=== PATIENT | male | born 1990 | race Caucasian/White ===

== ENCOUNTER 2020-08-25 15:09 | Emergency (ER) | payer OTHER, SELFPAY ==
[2020-08-25 15:10] VITALS: BP 164/99; PULSE 89; RESP 16; TEMP 36.3; O2SAT 100; BMI 38.7
--- NOTE | 2020-08-25 15:12 | NURSING ---
NO OLD EKGS
--- NOTE | 2020-08-25 15:54 | CT_ITS ---
STUDY: CT BRAIN WITHOUT CONTRAST REASON FOR EXAM: Male, 30 years old. PARASTHESIAS RT LEG AND LOWER RT ARM/HAND X 3 DAYS RADIATION DOSAGE (If Supplied By Facility): CTDIvol = ( 44.99 ) mGy, DLP = ( 796.11 ) mGycm TECHNIQUE: Transaxial CT imaging of the brain was performed without administration of intravenous contrast material. Individualized dose optimization techniques were used for this CT. COMPARISON: No relevant priors. FINDINGS: Normal soft tissue structures. Normal calvarium. Normal size ventricles and extra-axial spaces for the patient''s age. Normal white matter tracts of the cerebral hemispheres. Normal basal ganglia and thalami. Normal brainstem. Normal cerebellum. There is no intracranial hemorrhage. There are no findings of an acute ischemic infarction. Mild mucosal thickening of the ethmoid air cells bilaterally.. CT/Brain/Head without Contrast IMPRESSION: Normal unenhanced CT scan of the brain. Mild bilateral ethmoid sinus disease. If clinical concern for acute infarct MRI recommended Electronically Signed: Mehdi Charles MD at 16:53 EST , Service support ,
--- NOTE | 2020-08-25 15:55 | EKG12_ITS ---
Test Reason : NUMBNESS TINGLING Blood Pressure : / mmHG Vent. Rate : 073 BPM Atrial Rate : 073 BPM P-R Int : 152 ms QRS Dur : 090 ms QT Int : 398 ms P-R-T Axes : 039 015 009 degrees QTc Int : 438 ms Normal sinus rhythm Normal ECG Confirmed by BHAKTI PALACIOS, MARQUIS ([id number]), purchasing expeditor ANAMIKA ONEIL ([id number]) on 08/26/2020 1:10:21 PM Referred By: SINDY Confirmed By:MARQUIS YA MD
--- NOTE | 2020-08-25 15:55 | VDLE_ITS ---
Reason For Study: PAIN RIGHT GSV is normal. CFV is compressible, spontaneous, phasic, competent and demonstrates normal augmentation. FV is compressible, spontaneous, phasic, competent and demonstrates normal augmentation. POP V is compressible, spontaneous, phasic, competent and demonstrates normal augmentation. T/P Trunk is compressible. PTV is compressible. RT PerV is compressible. Procedure Exam performed portable in ED. A preliminary report was called and/or faxed to ED. Interpretation Summary Deep veins of the right lower extremity are patent and compressible segmentally. There is no evidence of right lower extremity deep vein thrombosis. Valvular competence appears intact within the proximal deep venous system on the right . The right great saphenous vein appears patent and compressible segmentally. Ordering Physician: López Jara Performed By: Sydni Sampson, ROMI, RVT
[2020-08-25] MEDS: 0.9% Normal Saline 1,000 ML 1000 ML IV (16:06)
[2020-08-25 16:34] LABS: Absolute Lymphocyte Count 1.63 X10^3/uL (0.83-4.51); Absolute Neutrophil Count 8.5 X10^3/uL (2.0-7.7); Basophil# 0.05 X10^3/uL; Basophil% 0.5 % (0-1); Eosinophil# 0.09 X10^3/uL; Eosinophils% 0.8 % (0-5); Hematocrit 50.5 % (40-54); Hemoglobin 16.3 g/dL (13.0-16.5); Lymphocyte # 1.63 X10^3/ul (4.0); Mean Corp Hgb Conc 32.3 g/dL (32-36); Mean Corpuscular Hgb 27.2 pg (27.0-32.0); Mean Corpuscular Volume 84.3 fL (80-94); Mean Platelet Vol. 10.5 fl (6.2-12.0); Monocyte# 0.54 X10^3/uL; NRBC Flagged by Analyzer 0 % (0-5); Neutrophil # 8.49 X10^3/uL (2.7-7.7); Neutrophil % 78.3 % (47-70); Platelet Count 342 K/mm3 (150-450); RBC Distribution Width CV 12.9 % (11.6-14.6); RBC Distribution Width SD 39.8 fl (35.1-43.9); Red Blood Count 5.99 M/mm3 (4.6-6.2); White Blood Count 10.8 K/mm3 (4.4-11.0)
[2020-08-25 16:39] LABS: Anion Gap 5 (5-15); BUN 10 mg/dL (7-18); BUN/Creat Ratio 9.5 RATIO (10-20); Calcium,Total 9.3 mg/dL (8.5-10.1); Chloride 107 mmol/L (98-107); Creatinine, Serum 1.05 mg/dL (0.70-1.30); EST Glomerular Filtration Rate 87 mL/min (>60); Est Glom Filt Rate - Afr Amer 106 mL/min (>60); Estimated Creatinine Clearance 105.25 ml/min; Glucose 103 mg/dL (74-106); Potassium 3.6 mmol/L (3.5-5.1); Sodium Level 141 mmol/L (136-145)
--- NOTE | 2020-08-25 17:15 | ED.VISSUMM ---
- ER Visit Summary Date of Service: 08/25/20 Chief Complaint: Right leg numbness History of Present Illness: The patient is a 30 M with no primary care physician. He reports he has right leg numbness from the knee down circumferentially that began 3 days ago. States that 2 days ago I got . States yesterday the symptoms were improved. However, today they have worsened and he is on his honeymoon and became concerned and came to the emerge department for evaluation. Patient reports that the only other symptom he has had is that his right hand is a little bit nominate that began today. He denies any weakness. No difficulty with his speech. No vertigo. He denies any family history of multiple sclerosis. Physical Examination: Vitals: Stable. Afebrile. General: Well-nourished and well-developed. Head: Normocephalic atraumatic. Neck: Supple, no lymphadenopathy. No JVD. Nontender. Cardiovascular: Regular rate and rhythm. No murmurs. Respiratory: No respiratory distress. Clear to auscultation bilaterally. Abdominal: Soft, nontender, nondistended, normal bowel sounds. No guarding, rebound, or peritoneal signs. Back: Nontender. Extremities: Nontender, no edema. Skin: Normal color, no rash. Neurologic: Alert and oriented ?3. Cranial nerves II through XII are intact. Normal strength. Mild subjective decreased sensation to light touch circumferentially around his right leg from the knee down. He has a 2+ dorsalis pedis pulse. Psych: Normal affect. Test Results: Right lower extremity Doppler is negative. EKG is sinus at 70 with no acute changes. CBC shows segmented for 78 lymphocytes 15. Chem-7 is normal. Clinical Impression(s) from Imaging Studies Brain CT 08/25/20 15:54 IMPRESSION: Normal unenhanced CT scan of the brain. Mild bilateral ethmoid sinus disease. If clinical concern for acute infarct MRI recommended Electronically Signed: Mehdi Charles MD at 16:53 EST , Service support , Emergency Department Course and Treatment: Patient's NIH scale is 1. He is not a TPA candidate due to that in the timeframe. I suspect this is peripheral in nature. Treatment Plan: Patient will be discharged instructions to follow-up with his primary care physician or establish a primary care physician as soon as possible when he gets home. Return to the emergency department for any worsening symptoms. Disposition: To home in improved and stable condition. Impression: 1. Paresthesias right leg. This note was generated with [employer] software. It may contain incorrect words, spelling, and punctuation that were not noted in review of the chart prior to signing ED Disposition - Plan for ED Patient: Disposition: Home or Assisted Living Instructions: ED PERIPHERAL NEUROPATHY Referrals: Doctor,Your [STAFF PHYSICIAN] - As soon as possible
[2020-08-25 17:22] VITALS: BP 155/84; PULSE 100; RESP 18; O2SAT 99
== END 2020-08-25 17:25 | disposition home or self-care (01) ==
LOC: ED 16:20
PROVIDERS: Emergency Provider Emergency Medicine
DX: R20.2 Paresthesia of skin (principal); R20.0 Anesthesia of skin
CPT/HCPCS: 70450; 80048; 85025; 93005; 93971; 96360; 99284; J7030; A4216